=== PATIENT | male | born 1985 | race Caucasian/White ===

== ENCOUNTER 2022-12-27 23:17 | Emergency (ER) | payer OTHER ==
[~2022-12-27] VITALS: Ht 170.2 cm; Wt 82.1 kg
[2022-12-27] MEDS ORDERED: ONDANSETRON 4MG INJ IV ONE (23:30)
[2022-12-27] MEDS ORDERED: ONDANSETRON 4MG INJ IVP ONE (23:30)
[2022-12-27] MEDS ORDERED: KETOROLAC 30MG VIAL (30MG/ML) IVP ONE (23:30)
[2022-12-27] MEDS ORDERED: LACTATED RINGERS 1000ML 1,000 ML IV ONE (23:30)
[2022-12-27] MEDS ORDERED: KETOROLAC 15MG/ML VIAL (15MG/ML) IV ONE (23:30)
[2022-12-27 23:40] LABS: BASOPHILS % (AUTO) 0.4 % (0.0-5.0); EOSINOPHILS % (AUTO) 2.5 % (0.0-8.0); HEMATOCRIT 48.2 % (42-54); LYMPHOCYTES % (AUTO) 43.5 % (21.0-51.0); MEAN CORPUSCULAR HEMOGLOBIN 29.8 pg (27.0-33.0); MEAN CORPUSCULAR HGB CONC 34.2 g/dL (32.0-36.0); MEAN CORPUSCULAR VOLUME 87.2 fL (79-99); MONOCYTES % (AUTO) 6.7 % (3.0-13.0); NEUTROPHILS % (AUTO) 46.7 % (40.0-77.0); PLATELET COUNT (AUTO) 281 K/uL (130-400); RED BLOOD CELL COUNT(AUTO) 5.53 MIL/uL (4.50-6.20); RED CELL DISTRIBUTION WIDTH 12.1 % (11.0-15.5); WHITE BLOOD COUNT (AUTO) 10.2 K/uL (4.8-10.8)
[2022-12-27 23:51] LABS: CREATININE 1.2 mg/dL (0.5-1.5); POTASSIUM 3.7 mmol/L (3.5-5.1)
[2022-12-27 23:55] LABS: ALBUMIN 4.2 g/dL (3.5-5.0)
[2022-12-28] MEDS ORDERED: MORPHINE 4 MG SYG IVP ONE
[2022-12-28 00:25] LABS: TOTAL PROTEIN, SERUM 7.7 g/dL (6.0-8.3)
[2022-12-28 00:44] LABS: APPEARANCE,URINE CLEAR (CLEAR); BILIRUBIN,URINE NEGATIVE (NEGATIVE); COLOR,URINE COLORLESS (YELLOW); GLUCOSE, URINE (UA) NEGATIVE (NEGATIVE); KETONES,URINE NEGATIVE (NEGATIVE); LEUKOCYTE ESTERASE ,URINE NEGATIVE Leu/uL (NEGATIVE); NITRATE,URINE NEGATIVE (NEGATIVE); OCCULT BLOOD,URINE NEGATIVE (NEGATIVE); PH,URINE 7.5 (5.0-8.0); PROTEIN,URINE NEGATIVE (NEGATIVE); UROBILINOGEN,URINE 0.2 mg/dL (0.2-1.0)
[2022-12-28 00:58] VITALS: BP 126/63
[2022-12-28] MEDS ORDERED: TAMSULOSIN HCL 0.4 MG CAP.ER.24H PO SCH (01:30)
[2022-12-28] MEDS ORDERED: DOCU-116 PO (01:33)
[2022-12-28] MEDS ORDERED: TRAM50TA4 PO (01:33)
[2022-12-28] MEDS ORDERED: TAMS-1 PO (01:33)
== END 2022-12-28 01:41 | disposition home or self-care (01) ==
LOC: EDH 23:17
DX: R10.11 Right upper quadrant pain (principal); Z90.49 Acquired absence of other specified parts of digestive tract
CPT/HCPCS: 99285; 74176; 96374; 96375 ×2; 80053; 83690; 85025; 81003; 36415; J2405; J1885; J2270